=== PATIENT | male | born 1975 | race Two or more races ===

== ENCOUNTER 2016-05-30 19:57 | Emergency (ER) | payer SELFPAY ==
[~2016-05-30] VITALS: Ht 160 cm; Wt 81.9 kg
[2016-05-30 19:59] VITALS: BP 158/96
== END 2016-05-30 21:14 | disposition home or self-care (01) ==
LOC: ED 21:04
DX: K08.89 Other specified disorders of teeth and supporting structures (principal)
CPT/HCPCS: 99283